=== PATIENT | female | born 1965 | race Caucasian/White ===

== ENCOUNTER 2020-01-01 18:17 | Emergency (ER) | payer SELFPAY ==
[2020-01-01 18:31] VITALS: BP 182/109; PULSE 74; RESP 18; TEMP 36.6; O2SAT 98; BMI 38.2
[2020-01-01 20:02] LABS: Basophils # 0.1 10^3/uL (0.0-0.1); Basophils % 0.9 %; Eosinophils # 0.1 10^3/uL (0.0-0.8); Eosinophils % 1.2 %; Hematocrit 47.1 % (37.0-47.0); Lymphocytes # 1.9 10^3/uL (0.8-4.8); Lymphocytes % 23.5 %; Mean Corpuscular HGB Conc 31.8 g/dL (30.0-36.0); Mean Corpuscular Hemoglobin 28.3 pg (28.0-34.0); Mean Corpuscular Volume 88.9 fL (81-99); Mean Platelet Volume 8.8 fL (7.4-10.4); Monocytes # 0.4 10^3/uL (0.2-0.9); Monocytes % 5.5 %; Neutrophils # 5.52 10^3/uL (1.8-7.7); Neutrophils % 68.7 %; Nucleated Red Blood Cells % 0 %; Platelet Count 408 10^3/cmm (130-400); Red Cell Distribution Width 14.8 % (12.1-15.1)
--- NOTE | 2020-01-01 20:16 | W.ED.ABDPA2 ---
HPI - Abdominal Pain General: Chief Complaint: Abdominal Pain Stated Complaint: Abd pain Time Seen by Provider: 01/01/20 19:39 Source: patient Mode of arrival: ambulatory Limitations: no limitations History of Present Illness: HPI narrative: 54-year-old female patient presents to the emergency department with 1 week history of left flank pain. She reports sudden onset, has experienced similar symptoms in the past year but pain stopped. She reports taking swaw-oeg-mwnlkgi headache medication for pain. States has not done much good for her. She denies fever chills. Reports nausea but denies vomiting. She states metformin causes diarrhea. Reports last bowel movement this morning. She denies dysuria or vaginal discharge. States previous cholecystectomy. MD elicited complaint: abdominal pain and flank pain (lt) Pertinent past history: none Onset (ago): week(s) (2) Pain Consistency: constant Severity: similar to previous episodes Quality: cramping, aching and dull Radiation: L flank and back Exacerbating factors: movement Relieving factors: rest Associated Symptoms: Reports bloating, diarrhea and nausea; Denies chills, GI cramping, dysuria, fever(s), heartburn, hematochezia, hematemesis, melena and poor appetite Treatments prior to arrival: other Review of Systems General: Reports: 10 or more systems reviewed and unremarkable except in HPI and below Const: Denies: fever(s), chills or diaphoresis Eyes: Denies: blurry vision or eye redness ENMT: Denies: throat pain, dental pain or disequilibrium Card: Denies: chest pain, palpitations or irregular heart rhythm Resp: Denies: dyspnea, productive cough, non-productive cough or wheezing GI: Reports: abdominal pain, nausea, diarrhea and bloating; Denies: hematemesis, heartburn, GI cramping, hematochezia or melena : Denies: difficulty voiding or dysuria Musc: Denies: neck pain, back pain or joint pain Skin/Breast: Denies: rash or pruritus Neuro: Denies: headache(s), weakness in extremities or behavioral changes Farhat/Lymph: Denies: easy bruising Physical Exam Const: COMMON NORMALS: no acute distress, patient oriented x3, healthy appearing and alert GENERAL APPEARANCE: cooperative, well hydrated and other (Uncomfortable) NUTRITIONAL APPEARANCE: obese ORIENTATION/CONSCIOUSNESS: Yes awake, Yes oriented to person, Yes oriented to place and Yes oriented to time HENMT: COMMON NORMALS: normocephalic, Normal external nose present and moist oral mucous membranes HEAD & SCALP: normocephalic NOSE: Normal external nose present Eye: COMMON NORMALS: Equal, round and reactive pupils present and EOMs intact bilaterally GENERAL EYE: appearance normal, both eyes and all related structures PUPIL: Yes Equal, round and reactive pupils present Neck/C-Spine: COMMON NORMALS: full ROM and no lymphadenopathy GENERAL: Yes normal visual inspection and Yes trachea midline CERVICAL SPINE: Yes cervical ROM normal Lymph: LYMPHATIC: no lymphadenopathy noted Chest: COMMONS NORMALS: normal inspection of the chest and normal palpation of entire chest wall Resp: COMMON NORMALS: normal respiratory effort and clear to auscultation bilaterally AUSCULTATION: clear to auscultation bilaterally Cardio: COMMON NORMALS: regular rhythm, S1 normal heart sound present, S2 normal heart sound present and Peripheral pulses 2+ throughout RHYTHM: regular rhythm HEART SOUNDS: S1 normal heart sound present and S2 normal heart sound present PERIPHERAL PULSES: Peripheral pulses 2+ throughout GI: COMMON NORMALS: Normal to inspection, nondistended, normoactive bowel sounds present and Soft to palpation INSPECTION: Yes normal to inspection PALPATION: Yes Soft to palpation, Yes Tenderness to palpation present (GI) Details: LLQ and LUQ, No Hernia present, No Palpable mass present and Yes Rebound tenderness present : BLADDER/KIDNEY EXAM: Yes CVA tenderness on the left EXTERNAL FEMALE EXAM: No Hernia present Back/Pelvis: COMMON NORMALS: thoracic and lumbar spine normal to inspection Extremity: COMMON NORMALS: normal to inspection and capillary refill normal Neuro: COMMON NORMALS: patient oriented x3 and no focal motor deficits SENSORIUM/ORIENTATION: Yes alert, Yes oriented to person, Yes oriented to place and Yes oriented to time Psych: COMMON NORMALS: mental status grossly normal, Normal thought process present and cooperative ACTIVITY/MOTOR BEHAVIOR: Yes appropriate eye contact THOUGHT PROCESS: Normal thought process present Skin: COMMON NORMALS: no rashes or lesions noted and turgor normal GENERAL SKIN EXAM: no rashes or lesions noted and turgor normal Course ED course: 54-year-old female patient presents to the emergency department with abdominal pain. CT scan of the abdomen pelvis without acute abnormality/stone appreciated. Urinalysis revealed 4+ glucose, with white blood cells of 25-40 and positive leukoesterase/2+ bacteria. Treated for pyelonephritis secondary to left flank pain left CVA tenderness. 1 g Rocephin is administered here in the emergency department with prescription of Omnicef to follow. Advised to follow-up with her primary care physician for urinary culture follow-up and plan of care for increased diabetic control. Advised to return to the emergency department if she develops fever, nausea vomiting or worsening abdominal pain. Verbalized understanding. Results of today's findings were discussed questions were answered. Vital Signs: Vital signs: Vital Signs Temperature 97.9 F 01/01/20 18:31 Pulse Rate 84 01/01/20 22:26 Respiratory Rate 16 01/01/20 22:26 Blood Pressure 159/77 01/01/20 22:26 Pulse Oximetry 98 01/01/20 22:26 MDM - Abdominal Pain Lab Data: Labs: Lab Results 01/01/20 01/01/20 01/01/20 Range/Units 19:49 19:49 19:49 WBC 8.0 (4.0-10.0) 10^3/ uL RBC 5.30 (4.1-5.3) 10^6/u L Hgb 15.0 (11.5-15.3) g/dL Hct 47.1 H (37.0-47.0) % MCV 88.9 (81-99) fL MCH 28.3 (28.0-34.0) pg MCHC 31.8 (30.0-36.0) g/dL RDW 14.8 (12.1-15.1) % Plt Count 408 H (130-400) 10^3/c mm MPV 8.8 (7.4-10.4) fL Neut % (Auto) 68.7 % Lymph % (Auto) 23.5 % Swain % (Auto) 5.5 % Eos % (Auto) 1.2 % Baso % (Auto) 0.9 % Neut # (Auto) 5.52 (1.8-7.7) 10^3/u L Lymph # (Auto) 1.9 (0.8-4.8) 10^3/u L Swain # (Auto) 0.4 (0.2-0.9) 10^3/u L Eos # (Auto) 0.1 (0.0-0.8) 10^3/u L Baso # (Auto) 0.1 (0.0-0.1) 10^3/u L Nucleated RBC % (a uto) 0 % Nucleated RBCs # 0.0 /100WBC Sodium 139 (136-145) mmol/L Potassium 3.8 (3.5-5.1) mmol/L Chloride 100 (98-107) mmol/L Carbon Dioxide 26 (22-29) mmol/L Anion Gap 16.8 (5-19) BUN 9 (6-20) mg/dL Creatinine 0.6 (0.5-0.9) mg/dL GFR Calculation 104.2 (90-130) mL/min Glucose 158 H (65-115) mg/dL Calculated Osmolal ity 290 (285-295) mOsm/k g Calcium 10.1 (8.5-10.5) mg/dL Total Bilirubin 0.2 (0.15-1.2) mg/dL AST 25 (0-32) U/L ALT 30 (0-33) U/L Alkaline Phosphata se 77 (35-105) IU/L Total Protein 7.3 (6.6-8.7) g/dL Albumin 4.9 (3.5-5.2) g/dL Globulin 2.4 (1.3-4.6) g/dL Lipase 44 (13-60) U/L HCG, Qual Negative (Negative) Urine Color (Yellow) Urine Appearance (CLEAR) Urine pH (5-7) Ur Specific Gravit y (1.005-1.030) Urine Protein (Negative) Urine Glucose (UA) (Normal) Urine Ketones (Negative) Urine Blood (Negative) Urine Nitrate (Negative) Urine Bilirubin (Negative) Urine Urobilinogen (Negative) mg/dL Ur Leukocyte Morelia ase (Negative) Urine RBC (0-2) /hpf Urine WBC (0-5) /hpf Ur Squamous Epith Cells (0-5) /hpf Amorphous Sediment Urine Bacteria (NONE) /hpf Urine Mucus /hpf 01/01/20 Range/Units 19:57 WBC (4.0-10.0) 10^3/ uL RBC (4.1-5.3) 10^6/u L Hgb (11.5-15.3) g/dL Hct (37.0-47.0) % MCV (81-99) fL MCH (28.0-34.0) pg MCHC (30.0-36.0) g/dL RDW (12.1-15.1) % Plt Count (130-400) 10^3/c mm MPV (7.4-10.4) fL Neut % (Auto) % Lymph % (Auto) % Swain % (Auto) % Eos % (Auto) % Baso % (Auto) % Neut # (Auto) (1.8-7.7) 10^3/u L Lymph # (Auto) (0.8-4.8) 10^3/u L Swain # (Auto) (0.2-0.9) 10^3/u L Eos # (Auto) (0.0-0.8) 10^3/u L Baso # (Auto) (0.0-0.1) 10^3/u L Nucleated RBC % (a uto) % Nucleated RBCs # /100WBC Sodium (136-145) mmol/L Potassium (3.5-5.1) mmol/L Chloride (98-107) mmol/L Carbon Dioxide (22-29) mmol/L Anion Gap (5-19) BUN (6-20) mg/dL Creatinine (0.5-0.9) mg/dL GFR Calculation (90-130) mL/min Glucose (65-115) mg/dL Calculated Osmolal ity (285-295) mOsm/k g Calcium (8.5-10.5) mg/dL Total Bilirubin (0.15-1.2) mg/dL AST (0-32) U/L ALT (0-33) U/L Alkaline Phosphata se (35-105) IU/L Total Protein (6.6-8.7) g/dL Albumin (3.5-5.2) g/dL Globulin (1.3-4.6) g/dL Lipase (13-60) U/L HCG, Qual (Negative) Urine Color Yellow (Yellow) Urine Appearance Cloudy (CLEAR) Urine pH 7.0 (5-7) Ur Specific Gravit y 1.010 (1.005-1.030) Urine Protein Neg (Negative) Urine Glucose (UA) 4+ H (Normal) Urine Ketones 1+ H (Negative) Urine Blood Neg (Negative) Urine Nitrate Negative (Negative) Urine Bilirubin Neg (Negative) Urine Urobilinogen Norm (Negative) mg/dL Ur Leukocyte Morelia ase 1+ H (Negative) Urine RBC 5-10 H (0-2) /hpf Urine WBC 25-40 H (0-5) /hpf Ur Squamous Epith Cells 10-15 H (0-5) /hpf Amorphous Sediment Not Reportable Urine Bacteria 2+ H (NONE) /hpf Urine Mucus 1+ /hpf Imaging Data ^: CT Abd/Pel: Radiologist's impression: [place] [address] [address] Scan Report Signed Patient: Cristina Arreaga Unit #: [id number] : 1965 Age/Sex: 54 / F ADM Date: 01/01/20 Loc: ER Room/Bed: Attending Dr: Ordering Provider/Ordering MD: Missy Valerio Date of Service: 01/01/20 Procedure(s): CT kidney stone [id number] Accession Number(s): [id number] Report Number: [id number] PROCEDURE INFORMATION: Exam: CT Abdomen And Pelvis Without Contrast Exam date and time: 01/01/2020 8:21 PM Age: 54 years old Clinical indication: Nausea; Abdominal pain; Flank; Left; Prior surgery; Surgery type: Gb; Additional info: Left flank pain TECHNIQUE: Imaging protocol: Computed tomography of the abdomen and pelvis without contrast. Radiation optimization: All CT scans at this facility use at least one of these dose optimization techniques: automated exposure control; mA and/or kV adjustment per patient size (includes targeted exams where dose is matched to clinical indication); or iterative reconstruction. COMPARISON: No relevant prior studies available. RADIATION DOSE METRICS: Total DLP (mGy-cm): 1959.15 FINDINGS: Lungs: The lung bases appear unremarkable. Liver: Decreased hepatic density is noted, consistent with hepatic steatosis. Gallbladder and bile ducts: The gallbladder is surgically absent. No biliary dilatation. Pancreas: The pancreas is normal in appearance. Spleen: The spleen is normal in size and appearance. Adrenal glands: The adrenal glands appear within normal limits. Kidneys and ureters: 1.5 cm simple appearing left renal cyst. The kidneys are otherwise morphologically normal. No nephrolithiasis or hydronephrosis. Normal ureters bilaterally. No obstructive uropathy. Stomach and bowel: No acute gastric abnormality demonstrated. The small bowel is unremarkable as demonstrated. No acute abnormality/inflammatory change of the colon. Appendix: The appendix is normal in appearance. No evidence of appendicitis. Intraperitoneal space: No pneumoperitoneum. No significant fluid collection. Vasculature: The aorta is atherosclerotic. No aortic aneurysm. Lymph nodes: No pathologically enlarged lymph nodes are demonstrated. Urinary bladder: Unremarkable as visualized. Reproductive: Bilateral tubal ligation clips are present. Uterus and adnexa appear unremarkable. Bones/joints: Degenerative change of the L5-S1 disc. No acute osseous abnormality. Soft tissues: The soft tissues appear unremarkable. CT/CT kidney stone [id number] IMPRESSION: 1. 1.5 cm simple appearing left renal cyst. The kidneys are otherwise morphologically normal. No nephrolithiasis or hydronephrosis. Normal ureters bilaterally. No obstructive uropathy. 2. Decreased hepatic density is noted, consistent with hepatic steatosis. 3. No acute abnormality demonstrated in the abdomen and pelvis. COMMENTS: Consistent with the [employer]'s Incidental Findings Committee white paper (J Am Ruth Radiol 2018): Any incidental renal lesion less than 1 cm or classified as too small to characterize, or any incidental cystic renal lesion characterized as simple-appearing, is likely benign. No follow-up imaging is recommended for these lesions per consensus recommendations based on imaging criteria. Radiation Dose CTDIVOL = (mGy): DLP = 1959.15 (mGy-cm) Dictated By: Vidal Cornelius MD Signed By: Vidal Cornelius MD Signed Date/Time: 01/01/202049 DD/ 48 Discharge Plan Discharge Patient Disposition: Home Clinical Impression: UTI (urinary tract infection), bacterial, Acute left flank pain Condition: Stable Prescriptions: New cefdinir 300 mg capsule 300 mg PO BID 10 Days Qty: 20 RF: 0 naproxen 500 mg tablet 500 mg PO BID PRN (Reason: pain) Qty: 14 RF: 0 Zofran 4 mg tablet 4 mg PO TID PRN (Reason: nausea and vomiting) 4 Days Qty: 10 RF: 0 No Action multivitamin Tablet 1 tab PO DAILY RF: 0 lecithin 1,200 mg Capsule 1,200 mg PO DAILY RF: 0 vitamin B complex Tablet 1 tab PO DAILY RF: 0 Migraine Relief 250-250-65 mg Tablet 2 tab PO DAILY RF: 0 CoQ-10 30 mg Capsule 30 mg PO DAILY RF: 0 Vitamin D3 25 mcg (1,000 unit) Capsule 25 mcg PO DAILY RF: 0 magnesium Tablet 1 tab PO BID RF: 0 Leg Cramp Relief Capsule 2 cap PO BEDTIME RF: 0 L-Arginine(alpha-ketoglutarat) 1 cap PO BID RF: 0 Carmona Probiotic 1 cap PO DAILY RF: 0 Transitions Menopause Relief 2 cap PO BEDTIME RF: 0 astaxanthin 1 cap PO DAILY RF: 0 cranberry 2 tab PO DAILY RF: 0 resveratrol 1 cap PO DAILY RF: 0 lisinopril-hydrochlorothiazide 20-12.5 mg Tablet 1 tab PO DAILY RF: 0 atenolol 25 mg Tablet 25 mg PO DAILY RF: 0 metformin 1,000 mg Tablet 1,000 mg PO BID RF: 0 gabapentin 300 mg Capsule See Rx Instructions .ROUTE .COMPLEX RF: 0 Prilosec 20 mg Capsule,Delayed Release(Dr/Ec) 20 mg PO DAILY RF: 0 glipizide 5 mg Tablet 5 mg PO BID RF: 0 Farxiga 5 mg Tablet 5 mg PO QAM RF: 0 Discharge Orders: Discharge Order (Routine); Ordered 01/01/20 Ordered By: Missy Valerio Discharge Diet: Diabetic Discharge Activity: Resume usual activity Patient Instructions: Urinary Tract Infection in Women (ED), Abdominal Pain (ED) Activity Restrictions/Additional Instructions: Take Omnicef until all gone, even if feeling better, take medication with food to help reduce stomach upset Take naproxen as needed for pain, do not take with headache/migraine medication Push fluids, you will need lots and lots of fluids Return to the emergency department if you develop fever, vomiting despite use of Zofran, increased abdominal pain or other concerning symptoms Follow-up with your primary care provider in 5 to 7 days without fail to ensure that you are improving Compliance with diabetic diet is needed as sugar will increase your risk for bacteria in the urine/urinary tract infections Stand Alone Forms: Work/School Release Coding Level of Care Code ED Packer And Carry Out for Anupama Fwgabriel Exam Comprehensive
[2020-01-01 20:17] LABS: HCG, Serum Qual Negative (Negative)
[2020-01-01 20:19] LABS: Add Urine Microscopic? YES; Bilirubin Urine Neg (Negative); Blood Urine Neg (Negative); Glucose Urine UA 4+ (Normal); Ketones Urine 1+ (Negative); Leukocyte Esterase Urine 1+ (Negative); Nitrate Urine Negative (Negative); Protein Urine Neg (Negative); Urine Appearance Cloudy (CLEAR); Urine Color Yellow (Yellow); Urobilinogen Urine Norm (Negative)
[2020-01-01 20:20] LABS: Add Urine Culture? Yes; Bacteria Urine 2+ /hpf; Mucus Urine 1+ /hpf; WBC Urine 25-40 /hpf (0-5)
[2020-01-01 20:21] LABS: Alanine Aminotransferase 30 U/L (0-33); Albumin Level 4.9 g/dL (3.5-5.2); Alkaline Phosphatase 77 IU/L (35-105); Anion Gap 16.8 (5-19); Aspartate Amino Transferase 25 U/L (0-32); Blood Urea Nitrogen 9 mg/dL (6-20); Calcium 10.1 mg/dL (8.5-10.5); Carbon Dioxide 26 mmol/L (22-29); Chloride 100 mmol/L (98-107); Globulin 2.4 g/dL (1.3-4.6); Glomerular Filtration Rate 104.2 mL/min (90-130); Glucose 158 mg/dL (65-115); Lipase 44 U/L (13-60); Osmolality Calculated 290 mOsm/kg (285-295); Potassium 3.8 mmol/L (3.5-5.1); Sodium 139 mmol/L (136-145); Total Bilirubin 0.2 mg/dL (0.15-1.2); Total Protein 7.3 g/dL (6.6-8.7)
[2020-01-01 20:52] VITALS: RESP 18; O2SAT 98
[2020-01-01] MEDS: ondansetron 2 mg/ML SDV 2 mL 4 MG IVP (20:52)
[2020-01-01] MEDS: morphine 4 mg/mL SDV 1 mL 2 MG IVP ×2 (20:52→21:56)
[2020-01-01 21:56] VITALS: RESP 18; O2SAT 97
[2020-01-01] MEDS: cefTRIAXone 1,000 MG in sodium chloride 0.9% (plus) 50 ML 100 MG IV (21:56)
[2020-01-01 22:26] VITALS: BP 159/77; PULSE 84; RESP 16; O2SAT 98
== END 2020-01-01 22:28 | disposition home or self-care (01) ==
PROVIDERS: Emergency Medicine; Emergency Provider Nurse Practitioner Family
DX: N39.0 Urinary tract infection, site not specified (principal)
CPT/HCPCS: 12345; 74176; 80053; 81001; 83690; 84703; 85025; 87086; 96365; 96375; 96376; 99283; J0696; J2270; J2405

== ENCOUNTER 2021-02-24 13:49 | Outpatient (CLI) | payer OTHER, SELFPAY ==
--- NOTE | 2021-02-24 14:05 | MM_ITS ---
WS: [id number] BILATERAL DIGITAL SCREENING MAMMOGRAPHY WITH CAD CLINICAL INFORMATION: SCREENING HISTORY: Screening mammogram. No current complaints. COMPARISON: TECHNIQUE: Bilateral CC and MLO views. FINDINGS: Scattered fibroglandular densities bilaterally. No suspicious focal mass, asymmetry, calcifications, or architectural distortion. No evidence of malignancy. MM/[place] [id number] IMPRESSION: BI-RADS: 1-Negative FOLLOW UP: 1 Year Follow-up Recommend return to annual screening mammography.
== END 2021-02-24 13:50 | disposition home or self-care (01) ==
LOC: RADSHAW 13:58
PROVIDERS: Visit Provider Obstetrics & Gynecology
DX: Z12.31 Encounter for screening mammogram for malignant neoplasm of breast (principal)
CPT/HCPCS: 77067

== ENCOUNTER 2021-11-15 06:54 | Day surgery (SDC) | payer MEDICAID, SELFPAY ==
[2021-11-11 13:09] VITALS: BMI 35.6
--- NOTE | 2021-11-15 07:26 | ANES.PREANE2 ---
Pre-Anesthetic Assessment Height/Weight: Height 1.68 m Weight 100.244 kg Preop Diagnosis: LAP and HB Operation Date: 11/15/21 08:45 Proposed Procedures p EGD/Colonoscopy 01248,11180,R10.30(Not Applicable) - Emile Prescott MD s Colonoscopy(Not Applicable) - Emile Prescott MD Familial anesthetic complications: None Was Beta Kylee taken within 24 hours: Yes Was Clonidine taken within 24 hours: N/A Social No alcohol and No tobacco Exam alert, oriented x 3, clear to auscultation bilaterally and regular rate & rhythm Airway Submandibular: within normal limits Cervical ROM: within normal limits Mallampati: Class I Dentition: full History/ROS No significant complaints Pulmonary STOP BANG Score - 5 to 6 Snores Tired in day No witnessed apnea Hypertension BMI 35.7 Age > 50 Large neck Female CV/HEM Hypertension None reported Hepatic None reported GI Gastroesophageal Reflux Disease (Poorly controlled ) Metabolic Diabetes Mellitus and Hyperlipidemia [facility] None reported Neuropsych None reported Anesthetic Plan ASA status: 3 Anesthesia: Anesthesia Evaluation, General and MAC Other: I discussed with the patient risks, goals, and benefits of MAC and general anesthesia. We discussed spectrum of MAC anesthesia including conversion to general as well as possibility of recall of intraoperative stimuli including discomfort/pain. Patient agrees to proceed with MAC. Risk of > 500 ml blood loss (7ml/kg in children): No Medications/Allergies Home Medications Medication Instructions Recorded Confirmed Last Taken Type L-Arginine(alpha-ketoglutarat) 1 cap PO BID 01/01/20 11/11/21 11/13/21 History Carmona Probiotic 1 cap PO DAILY 01/01/20 11/11/21 11/13/21 History iadiymd-wrkywugjcllqd-gljjohla 250 2 tab PO PRN PRN Migraine Headache 01/01/20 11/11/21 11/12/21 History mg-250 mg-65 mg tablet (Migraine Relief) astaxanthin 1 cap PO DAILY 01/01/20 11/11/21 11/12/21 History atenolol 25 mg tablet 25 mg PO DAILY 01/01/20 11/11/21 11/15/21 05:15 History cholecalciferol (vitamin D3) 25 25 mcg PO DAILY 01/01/20 11/11/21 11/14/21 History mcg (1,000 unit) capsule (Vitamin D3) coenzyme Q10 30 mg capsule (CoQ-10) 30 mg PO DAILY 01/01/20 11/11/21 11/12/21 History cranberry 2 tab PO DAILY 01/01/20 11/11/21 11/12/21 History gabapentin 300 mg capsule See Rx Instructions .Route .COMPLEX 01/01/20 11/11/21 11/13/21 History lecithin 1,200 mg capsule 1,200 mg PO DAILY 01/01/20 11/11/21 11/13/21 History magnesium 1 tab PO BID 01/01/20 11/11/21 11/13/21 History metformin 1,000 mg tablet 1,000 mg PO BID 01/01/20 11/11/21 11/13/21 History multivitamin 1 tab PO DAILY 01/01/20 11/11/21 11/12/21 History resveratrol 1 cap PO DAILY 01/01/20 11/11/21 11/13/21 History vitamin B complex 1 tab PO DAILY 01/01/20 11/11/21 11/13/21 History ondansetron 4 mg disintegrating 4 mg PO Q8H PRN nausea and 08/17/20 11/15/21 2 Months Ago Rx tablet vomiting #20 tabs ~09/15/21 amlodipine 5 mg tablet 5 mg PO DAILY 11/10/21 11/11/21 11/15/21 05:15 History fenofibrate 160 mg tablet 160 mg PO DAILY 11/10/21 11/11/21 11/13/21 History glipizide 5 mg tablet 10 mg PO BID 11/10/21 11/11/21 11/13/21 History lisinopril 20 2 tab PO DAILY 11/10/21 11/11/21 11/14/21 History mg-hydrochlorothiazide 12.5 mg tablet omeprazole 20 mg capsule,delayed 40 mg PO DAILY 11/10/21 11/11/21 11/14/21 History release ropinirole 0.25 mg tablet 0.25 mg PO BID 11/10/21 11/11/21 11/13/21 History rosuvastatin 20 mg tablet 20 mg PO DAILY 11/10/21 11/11/21 11/13/21 History Allergies Allergy/AdvReac Type Severity Reaction Status Date / Time amoxicillin Allergy ALGY-Hives Verified 11/15/21 07:34 miconazole Allergy Unknown Verified 11/15/21 07:34 morphine Allergy ADR-Vomitin Verified 11/15/21 07:34 g Penicillins Allergy Unknown Verified 11/15/21 07:34 [facility] Anesthesia Social History Smoking and tobacco status: former smoker Data Anesthesia Cardiac Studies: No Data to Display
[2021-11-15 07:37] VITALS: BP 169/99; PULSE 59; RESP 18; TEMP 36.1; O2SAT 98
[2021-11-15] MEDS: sodium chloride 0.9% 1,000 ML 30 ML IV (07:57)
--- NOTE | 2021-11-15 08:12 | P.HP_ITS ---
Same Day Surgery H&P Indication for Procedure/HPI DATE OF PROCEDURE: November 15, 2021 CHIEF COMPLAINT/INDICATIONFOR SURGICAL PROCEDURE: Abdominal pain and hematochezia PREOP DIAGNOSIS: LAP and HB PLANNED PROCEDURE: Operation Date: 11/15/21 08:45 Proposed Procedures p EGD/Colonoscopy 99415,54094,R10.30(Not Applicable) - Emile Prescott MD s Colonoscopy(Not Applicable) - Emile Prescott MD Medications/Allergies* Home Medications Medication Instructions Recorded Confirmed Type L-Arginine(alpha-ketoglutarat) 1 cap PO BID 01/01/20 11/11/21 History Carmona Probiotic 1 cap PO DAILY 01/01/20 11/11/21 History jptrgho-wwpgduzkwduum-axjhldog 250 2 tab PO PRN PRN Migraine Headache 01/01/20 11/11/21 History mg-250 mg-65 mg tablet (Migraine Relief) astaxanthin 1 cap PO DAILY 01/01/20 11/11/21 History atenolol 25 mg tablet 25 mg PO DAILY 01/01/20 11/11/21 History cholecalciferol (vitamin D3) 25 25 mcg PO DAILY 01/01/20 11/11/21 History mcg (1,000 unit) capsule (Vitamin D3) coenzyme Q10 30 mg capsule (CoQ-10) 30 mg PO DAILY 01/01/20 11/11/21 History cranberry 2 tab PO DAILY 01/01/20 11/11/21 History gabapentin 300 mg capsule See Rx Instructions .Route .COMPLEX 01/01/20 11/11/21 History lecithin 1,200 mg capsule 1,200 mg PO DAILY 01/01/20 11/11/21 History magnesium 1 tab PO BID 01/01/20 11/11/21 History metformin 1,000 mg tablet 1,000 mg PO BID 01/01/20 11/11/21 History multivitamin 1 tab PO DAILY 01/01/20 11/11/21 History resveratrol 1 cap PO DAILY 01/01/20 11/11/21 History vitamin B complex 1 tab PO DAILY 01/01/20 11/11/21 History amlodipine 5 mg tablet 5 mg PO DAILY 11/10/21 11/11/21 History fenofibrate 160 mg tablet 160 mg PO DAILY 11/10/21 11/11/21 History glipizide 5 mg tablet 10 mg PO BID 11/10/21 11/11/21 History lisinopril 20 2 tab PO DAILY 11/10/21 11/11/21 History mg-hydrochlorothiazide 12.5 mg tablet omeprazole 20 mg capsule,delayed 40 mg PO DAILY 11/10/21 11/11/21 History release ropinirole 0.25 mg tablet 0.25 mg PO BID 11/10/21 11/11/21 History rosuvastatin 20 mg tablet 20 mg PO DAILY 11/10/21 11/11/21 History Allergies/Adverse Reactions Allergy/AdvReac Type Severity Reaction Status Date / Time amoxicillin Allergy ALGY-Hives Verified 11/15/21 07:34 miconazole Allergy Unknown Verified 11/15/21 07:34 morphine Allergy ADR-Vomitin Verified 11/15/21 07:34 g Penicillins Allergy Unknown Verified 11/15/21 07:34 Current Medications: Generic Name Dose Route Start Last Admin Trade Name Freq PRN Reason Stop Dose Admin Sodium Chloride 1,000 mls @ 30 mls/hr 11/15/21 07:15 11/15/21 07:57 Sodium Chloride 0.9% IV 30 mls/hr .Q24H JANET Administration Pertinent History/Comorbid Conditions* Social History Smoking and tobacco status: former smoker Pertinent Exam Findings alert, oriented x 3, clear to auscultation bilaterally, regular rate & rhythm, operative site marked and procedure specific exam findings Recommendations Surgery/Procedure today Coding Level of Care Code Acute Material Yard Clerk for Anupama Samaniego
[2021-11-15 09:45] VITALS: BP 105/64; PULSE 58; RESP 18; TEMP 36.1; O2SAT 96
--- NOTE | 2021-11-15 09:47 | ANE.PACU2 ---
Inpatient post-anesthesia follow up: Airway intact: Yes Vital signs: Temperature 97.0 F Pulse Rate 59 Respiratory Rate 18 Blood Pressure 169/99 Pulse Oximetry 98 Oxygen Delivery Me thod Room Air Oxygen Flow Rate Fraction of Inspir ed Oxygen Hydration adequate: Yes Nausea and vomiting: No Pain level: 1 Mental status: Baseline
[2021-11-15 09:59] VITALS: BP 134/86; PULSE 60; RESP 18; O2SAT 95
[2021-11-15 11:40] LABS: Glucose Point of Care 174 mg/dL (70-110)
[2021-11-16 12:56] LABS: H. Pylori / CLO Test Negative
== END 2021-11-15 10:19 | disposition home or self-care (01) ==
PROVIDERS: PCP Nurse Practitioner; Visit Provider Internal Medicine
PROC: 0DJ08ZZ Inspection of Upper Intestinal Tract, Via Natural or Artificial Opening Endoscopic (ICD-10-PCS; CPT 43235; principal; 2021-11-15 08:45)
PROC: 0DJD8ZZ Inspection of Lower Intestinal Tract, Via Natural or Artificial Opening Endoscopic (ICD-10-PCS; CPT 45378; 2021-11-15 08:45)
DX: R10.30 Lower abdominal pain, unspecified (principal); R12 Heartburn; K29.70 Gastritis, unspecified, without bleeding; I10 Essential (primary) hypertension; K21.9 Gastro-esophageal reflux disease without esophagitis; E11.9 Type 2 diabetes mellitus without complications; E78.5 Hyperlipidemia, unspecified; Z79.84 Long term (current) use of oral hypoglycemic drugs; Z87.891 Personal history of nicotine dependence
CPT/HCPCS: 36416; 43239; 45378; 82962; 87077; J2704; J7030